=== PATIENT | male | born 1990 | race Caucasian/White ===

== ENCOUNTER 2019-09-27 20:09 | Emergency (ER) | payer BC ==
--- NOTE | 2019-09-27 20:33 | ER Document Report ---
ED General - General Stated Complaint: COUGH HEADACHE Time Seen by Provider: 09/27/19 20:17 Notes: Patient is a 29-year-old male that comes emergency department for chief complaint of third day of cough, sore throat, generalized body aches, and occasional headaches. He states he also has had some intermittent very mild shortness of breath. He denies chest pain, fever, vomiting, current headache. He is able to swallow with a small amount of pain. He states that he was exposed to somebody who had also been exposed to someone that tested positive for the coronavirus, however he did not have direct contact with the positive person. He denies smoking, recreational drugs (although he did stop using recreational drugs 8 years ago). He denies any daily medications or medical history otherwise. Past Medical History - General Information source: Patient - Social History Smoking Status: Never Smoker Drug Abuse: None Lives with: Family Family History: Reviewed & Not Pertinent Surgical Hx: Negative - Immunizations Immunizations up to date: Yes Hx Diphtheria, Pertussis, Tetanus Vaccination: Yes Review of Systems - Review of Systems Constitutional: No symptoms reported EENT: See HPI Cardiovascular: No symptoms reported Respiratory: See HPI Gastrointestinal: No symptoms reported Genitourinary: No symptoms reported Male Genitourinary: No symptoms reported Musculoskeletal: No symptoms reported Skin: No symptoms reported Hematologic/Lymphatic: No symptoms reported Neurological/Psychological: No symptoms reported Physical Exam - Vital signs Vitals: Temp Pulse Resp BP Pulse Ox 98.7 F 80 18 122/85 98 09/27/19 20:19 09/27/19 20:19 09/27/19 20:19 09/27/19 20:19 09/27/19 20:19 - Notes Notes: GENERAL: Alert, interacts well. No acute distress. HEAD: Normocephalic, atraumatic. EYES: Pupils equal, round, and reactive to light. Extraocular movements intact. ENT: Oral mucosa moist, tongue midline. Mild erythema the posterior pharynx without noted tonsillar hypertrophy. Normal uvula. Airway patent. Nares patent, sinuses non-tender, ear canals unremarkable, TM's intact. NECK: Full range of motion. Supple. Trachea midline. Mild bilateral anterior cervical adenopathy. LUNGS: Clear to auscultation bilaterally, no wheezes, rales, or rhonchi. No respiratory distress. Non-tender chest wall. Occasional mild cough. HEART: Regular rate and rhythm. No murmur ABDOMEN: Soft, non-tender. Non-distended. EXTREMITIES: Moves all 4 extremities spontaneously. No edema, normal radial and dorsalis pedis pulses bilaterally. No cyanosis. BACK: no cervical, thoracic, lumbar midline tenderness. No saddle anesthesia, normal distal neurovascular exam. Moves all extremities in full range of motion. NEUROLOGICAL: Alert and oriented x3. Normal speech. Cranial nerves II through XII grossly intact. Strength 5/5 in all extremities. PSYCH: Normal affect, normal mood. SKIN: Warm, dry, normal turgor. No rashes or lesions noted. Course - Re-evaluation Re-evalutation: Patient specifically voicing concerns of possible exposure to another patient with a positive coronavirus test. As result he was tested here. Chest x-ray is negative for acute findings, EKG unremarkable, patient also has a mild sore throat, mild erythema the posterior pharynx, mild anterior cervical adenopathy bilaterally. Strep is negative. Abdomen is soft and benign. Lungs are clear. No hypoxia. Other than mild sore throat patient has no additional complaints on reevaluation. Discussed pending testing, quarantine recommendations, and options. Decision was made to treat with Tessalon and Decadron here. Discussed additional care, expectations, follow-up, return precautions. Patient states appreciation and agreement. Stable and well-appearing at time of discharge. - Vital Signs Vital signs: Temp Pulse Resp BP Pulse Ox 97.9 F 59 L 14 129/74 H 98 09/27/19 22:47 09/27/19 22:47 09/27/19 22:47 09/27/19 22:47 09/27/19 22:47 Discharge - Discharge Clinical Impression: Cough Pharyngitis Qualifiers: Pharyngitis/tonsillitis etiology: unspecified etiology Qualified Code(s): J02.9 - Acute pharyngitis, unspecified Condition: Stable Disposition: HOME, SELF-CARE Additional Instructions: Your chest x-ray, EKG, and strep throat tests are all negative and reassuring. Your evaluation is most consistent with a viral upper respiratory illness. You have been tested for COVID-19 and you will be contacted with the results. Until you are contacted you should remain in quarantine. You can take Tylenol, ibuprofen, decongestants, antihistamines, and the prescribed cough medicine if needed. See additional instructions below. Return for any concerning symptoms including spiking fevers, difficulty breathing, repeated vomiting, or any other concerning symptoms. As a person under investigation for COVID-19, the [place] Department of Health and Human Services (divison on public health) advises you to adhere to the following guidance until your test results are reported to you. If your test result is positive, you will receive additional information from your provider and your local health department at that time. Remain at home until you are cleared by the health provider or public health authorities. Keep a log of visitors to your home, notify any visitors to your home of your isolation status. If you plan to move to a new address or leave the [facility], notify the local health department in your County. Call your Doctor or seek care if you have an urgent medical need. Before seeking medical care, call him to get instructions from the provider before arriving at the medical office, clinic, or hospital. Notify them that you are being tested for the virus (COVID-19) so that arrangements can be made, as necessary, to prevent transmission to others in the healthcare setting. Next, notify the local health department in your county. If a medical emergency arises and you need to call 911, inform the first responders that you are being tested for the virus that causes COVID-19. Next, notify the local health department in your [facility]. Prescriptions: Benzonatate [Tessalon Perles 100 mg Capsule] 100 mg PO Q8HP PRN #20 capsule PRN Reason: Forms: Return to Work
--- NOTE | 2019-09-27 22:28 | RADIOLOGY REPORT (SQ) ---
CHEST 1 VIEW on 09/27/2019 at 9:12 PM CLINICAL INDICATION: Cough, shortness of breath COMPARISON: 10/13/2010 FINDINGS: The lungs are clear. Cardiac, hilar and mediastinal contours are within normal limits. Pulmonary vascularity is within normal limits. No bony abnormality is noted. IMPRESSION: No active disease.
[2019-09-27] MEDS ORDERED: DEXAMETHASONE SOD PHOS INJ 10 MG/1 ML VIAL IM ONE (22:34)
[2019-09-27 22:54] VITALS: BP 129/74
--- NOTE | 2019-09-28 07:13 | EKG REPORT ---
SEVERITY:- NORMAL ECG - SINUS RHYTHM : Confirmed by: Jose David Miles MD 28-Sep-2019 07:12:35
== END 2019-09-27 23:11 | disposition home or self-care (01) ==
LOC: ER 20:09
DX: R05 Cough (principal); J02.9 Acute pharyngitis, unspecified; J35.1 Hypertrophy of tonsils; R59.0 Localized enlarged lymph nodes; R51 Headache; R06.02 Shortness of breath; Z20.828 Contact with and (suspected) exposure to other viral communicable diseases
CPT/HCPCS: 93005; 99284; 96372; 87070; 87880; 87635; 71045; 93010; J1100